=== PATIENT | female | born 1945 | race Caucasian/White ===

== ENCOUNTER 2016-09-25 06:47 | Day surgery (SDC) | payer OTHER ==
[~2016-09-25] VITALS: Ht 170.2 cm; Wt 88.5 kg
[2016-09-25] MEDS ORDERED: MIDAZOLAM HCL 5 MG/5 ML VIAL ONE ×2 (07:03)
[2016-09-25] MEDS ORDERED: fentaNYL CITRATE/PF 100 MCG/2 ML AMP ONE ×2 (07:03→08:32)
[2016-09-25] MEDS ORDERED: SIMETHICONE 40 MG/0.6 ML ML ONE (07:04)
[2016-09-25] MEDS ORDERED: fentaNYL CITRATE/PF 100 MCG/2 ML AMP IVP ONE ×4 (08:02→08:16)
[2016-09-25] MEDS ORDERED: MIDAZOLAM HCL 5 MG/5 ML VIAL IVP ONE ×5 (08:04→08:18)
[2016-09-25 14:00] VITALS: BP_SYST 147
== END 2016-09-25 09:50 | disposition home or self-care (01) ==
LOC: SDS 06:47 → SMU 07:04 → SDS 09:50
PROVIDERS: ATTEND Internal Medicine
DX: Z09 Encounter for follow-up examination after completed treatment for conditions other than malignant neoplasm (principal); Z86.010 Personal history of colon polyps; K57.30 Diverticulosis of large intestine without perforation or abscess without bleeding; E78.00 Pure hypercholesterolemia, unspecified; K29.70 Gastritis, unspecified, without bleeding; K21.9 Gastro-esophageal reflux disease without esophagitis
CPT/HCPCS: 36415; 43239; 45380; 87081; 88305; 88312; 88313; J2250; J3010